=== PATIENT | female | born 1990 | race Caucasian/White ===

== ENCOUNTER 2022-12-14 20:18 | Inpatient (IN) | payer OTHER ==
[~2022-12-14 20:18] MED LIST: Bupivacaine 0.25% HCL 30 ML VIAL ONE; ePHEDrine Sulfate 50 MG/10 ML VIAL ONE
[2022-12-14 21:18] VITALS: BMI 32.8
[2022-12-14] MEDS ORDERED: Ibuprofen 800 MG TAB PO PRN (21:38)
[2022-12-14] MEDS ORDERED: Ondansetron PF 4 MG/2 ML Vial IVP PRN (21:38)
[2022-12-14] MEDS ORDERED: Carboprost 250 MCG/ML AMP IM PRN (21:38)
[2022-12-14] MEDS ORDERED: Methylergonovine 0.2 MG/ML VIAL IM PRN (21:38)
[2022-12-14] MEDS ORDERED: Lidocaine 1% (PF) 30 ML VIAL SC PRN (21:38)
[2022-12-14] MEDS ORDERED: Tranexamic Acid 1,000 MG/10 ML VIAL IVP PRN (21:38)
[2022-12-14] MEDS ORDERED: fentaNYL 50 mcg/mL 1 mL Vial SLOW IVP PRN (21:38)
[2022-12-14] MEDS ORDERED: hydrALAZINE 20 MG/ML VIAL SLOW IVP PRN (21:38)
[2022-12-14] MEDS ORDERED: Promethazine HCl 25 MG/ML VIAL IM PRN (21:38)
[2022-12-14] MEDS ORDERED: Butorphanol Tartrate 1 MG/ML VIAL SLOW IVP PRN (21:38)
[2022-12-14] MEDS ORDERED: Acetaminophen 500 MG TAB PO PRN (21:38)
[2022-12-14] MEDS ORDERED: Oxytocin 30 units/NS 500 ML 500 ML IV SCH (21:45)
[2022-12-14] MEDS ORDERED: Misoprostol 100 MCG TAB PO SCH (21:45)
[2022-12-14 21:56] LABS: Hematocrit 34.7 % (34.9-44.5); Hemoglobin 11.9 g/dL (12.0-15.5); Mean Corpuscular HGB CONC 34.3 g/dL (32.0-36.0); Mean Corpuscular Volume 87.4 fl (81.6-98.3); Mean Platelet Volume 10.2 fl (7.4-10.4); Platelet Count 294 10x3/uL (150-450); RBC Distribution Width 12.4 % (11.5-14.5); Red Blood Cell (RBC) Count 3.97 10x6/uL (3.90-5.03); White Blood Cell (WBC) Count 11.4 10x3/uL (3.5-10.5)
[2022-12-14 22:36] LABS: Syphilis Antibody Nonreactive (Nonreactive); Syphilis Antibody Index 0.02 S/CO (<1.00 Non-Reactive)
[2022-12-14 22:38] LABS: HBSAg Index 0.16 S/CO (0-0.99); Hep B Surf Ag - L&D Non-Reactive S/CO (NonReactive)
[2022-12-15] MEDS ORDERED: Misoprostol 100 MCG TAB PO SCH (03:00)
[2022-12-15] MEDS ORDERED: fentaNYL/Ropivacaine Epidural 100 ML ONE (08:01)
[2022-12-15] MEDS: Lactated Ringer's 1,000 ML IV SCH ×2 (09:00→11:06)
[2022-12-15] MEDS ORDERED: Moisturizing Cream (Eucerin) 113 GM JAR TOP PRN (09:03)
[2022-12-15] MEDS ORDERED: Promethazine HCl 25 MG/ML VIAL IM PRN (09:03)
[2022-12-15] MEDS ORDERED: Ondansetron PF 4 MG/2 ML Vial IVP PRN (09:03)
[2022-12-15] MEDS ORDERED: Naloxone HCl 0.4 mg/ml Vial IVP PRN ×2 (09:03)
[2022-12-15] MEDS ORDERED: Acetaminophen 325 MG TAB PO PRN (09:03)
[2022-12-15] MEDS ORDERED: diphenhydrAMINE 50 MG/ML VIAL IVP PRN (09:03)
[2022-12-15] MEDS ORDERED: Lactated Ringer's 500 ML IV PRN (09:03)
[2022-12-15] MEDS ORDERED: ePHEDrine Sulfate 50 MG/10 ML VIAL SLOW IVP PRN (09:03)
[2022-12-15] MEDS ORDERED: fentaNYL 2 mcg/Ropivacaine 0.2% Epidural 100 ML CADD EPIDURAL SCH (09:15)
[2022-12-15] MEDS ORDERED: Communication Order-Pharmacy FS SCH (09:15)
[2022-12-15] MEDS ORDERED: Misoprostol 200 MCG TAB ONE (15:28)
[2022-12-15] MEDS ORDERED: Milk Of Magnesia 30 ML UDCUP PO PRN (16:38)
[2022-12-15] MEDS ORDERED: Bisacodyl 10 MG SUPP PR PRN (16:38)
[2022-12-15] MEDS ORDERED: Benzocaine-Menthol 82.5 ML CAN TOP PRN (16:38)
[2022-12-15] MEDS ORDERED: Lanolin Ointment 7 GM TUBE TOP PRN (16:38)
[2022-12-15] MEDS ORDERED: hydrALAZINE 20 MG/ML VIAL SLOW IVP PRN (16:38)
[2022-12-15] MEDS ORDERED: Boostrix 0.5 ML (Tdap) VIAL (>/=7 yrs of age) IM ONE (16:38)
[2022-12-15] MEDS: Docusate 100 MG CAP PO SCH (21:30)
[2022-12-15] MEDS ORDERED: Ibuprofen 800 MG TAB PO SCH (22:00)
[2022-12-16] MEDS: Ibuprofen 800 MG TAB PO SCH ×3 (01:00→18:17)
[2022-12-16] MEDS: Ferrous Sulfate 325 MG TAB PO SCH ×3 (07:27→16:26)
[2022-12-16] MEDS: Prenatal Vitamin 1 TAB PO SCH (08:48)
[2022-12-16] MEDS: Docusate 100 MG CAP PO SCH ×2 (08:48→21:10)
[2022-12-17] MEDS: Ibuprofen 800 MG TAB PO SCH ×2 (01:40→10:47)
[2022-12-17 07:26] VITALS: BP 118/62; TEMP 97.9
[2022-12-17] MEDS: Ferrous Sulfate 325 MG TAB PO SCH (07:42)
[2022-12-17] MEDS: Prenatal Vitamin 1 TAB PO SCH (08:34)
[2022-12-17] MEDS: Docusate 100 MG CAP PO SCH (08:34)
== END 2022-12-17 17:00 | disposition home or self-care (01) | DRG 807 ==
LOC: CSHLD/OP 20:18 → CSHLD 20:37 → CSHPP 12-15 18:50
PROVIDERS: ADMIT Obstetrics & Gynecology; ATTEND Obstetrics & Gynecology
PROC: 10E0XZZ Delivery of Products of Conception, External Approach (ICD-10-PCS; principal; 2022-12-15)
PROC: 0W8NXZZ Division of Female Perineum, External Approach (ICD-10-PCS; 2022-12-15)
DX: O42.02 Full-term premature rupture of membranes, onset of labor within 24 hours of rupture (principal); Z37.0 Single live birth; Z3A.38 38 weeks gestation of pregnancy; Z79.82 Long term (current) use of aspirin; O76 Abnormality in fetal heart rate and rhythm complicating labor and delivery; O62.2 Other uterine inertia; O32.8XX0 Maternal care for other malpresentation of fetus, not applicable or unspecified
CPT/HCPCS: 36415; 51702; 85027; 86780; 86850; 86900; 86901; 87340; 99285; J2210; J2590; J7120; S0020